=== PATIENT | female | born 1960 | race Caucasian/White ===

== ENCOUNTER → 2017-01-11 | Outpatient (CLI) | payer OTHER ==
[~2017-01-11] MED LIST: ACET-1256 PO; ALBU1AER9 INH
--- NOTE | 2017-01-11 14:55 | MAMMOGRAPHY REPORT ---
BILATERAL DIGITAL SCREENING MAMMOGRAM TOMOSYNTHESIS WITH CAD: 01/11/2017 CLINICAL HISTORY: Routine screening examination. TECHNIQUE: Breast tomosynthesis in addition to standard 2D mammography was performed. Current study was also evaluated with a Computer Aided Detection (CAD) system. COMPARISON: Comparison is made to exams dated: 01/31/2016 mammogram, 01/31/2016 stereotactic biopsy, 12/25 mammogram, 01/08/2016 mammogram, 01/04/2015 mammogram, and 01/03/2014 mammogram - [facility]. BREAST COMPOSITION: There are scattered areas of fibroglandular density in both breasts. FINDINGS: The parenchymal pattern is similar to prior exams. There is a stable metallic biopsy bindu er in the right breast. No developing mass, architectural distortion or cluster of suspicious microc alcifications is seen in either breast. IMPRESSION: ACR BI-RADS CATEGORY 2: BENIGN There is no mammographic evidence of malignancy. A 1 year screening mammogram is recommended. The pa tient will receive written notification of the results. Approximately 10% of breast cancers are not detected with mammography. A negative mammographic report should not delay biopsy if a clinically suggestive mass is present. Sarah Lubin M.D. ay/:01/11/2017 08:20:44 Cylinder Loader: Ally GREENWOOD(R)(M), [facility] letter sent: Normal 1/2 BI-RADS Code: ACR BI-RADS Category 2: Benign
== END | disposition home or self-care (01) ==
LOC: C.MAMM 07:31
PROVIDERS: ATTEND Family Medicine
DX: Z12.31 Encounter for screening mammogram for malignant neoplasm of breast (principal)

== ENCOUNTER 2023-01-06 21:51 | Inpatient (IN) ==
[2023-01-06] MEDS ORDERED: SODIUM CHLORIDE 0.9% 1000ML 2,000 ML IV ONE (22:12)
[2023-01-06] MEDS ORDERED: PIPERACILLIN/TAZOBACTAM 4.5 GM/120 ML BAG IV ONE (22:16)
[2023-01-06] MEDS ORDERED: ACETAMINOPHEN 1,000 MG/100 ML VIAL IV STA (22:17)
--- NOTE | 2023-01-06 22:19 | Emergency Department Note ---
Impression & Plan UTI (urinary tract infection) ADMIT ED Provider Note HPI: The patient is a 62-year-old female who presents emergency department chief complaint of fever and generalized weakness. Patient states her symptoms have been ongoing since Wednesday. She states that she had multiple episodes of watery diarrhea each day. Patient states that she contacted her PCPs office today and was in the process of arranging to have an outpatient urinalysis performed as she was having some dysuria today, however she began to feel worse after work and therefore came to the ED today to be assessed. On arrival the patient is noted to be hypotensive at 84/53, pulse rate of 74, respirations of 20, patient is saturating well on room air without increased work of breathing, she is noted to be febrile at 38.6. Patient denies any headache, denies any abdominal pain, denies any recent vomiting. Patient is alert and oriented on arrival, does appear somewhat listless. ROS: - Per HPI Differential Diagnosis: Sepsis, urinary tract infection, viral upper respiratory infection with cough, viral gastroenteritis, acute colitis, amongst other potential pathologies. *Outpatient medications and allergy history reviewed. *Pertinent external medical records reviewed. PE: General: Alert, listless appearing HEENT: Normocephalic, trachea midline Eyes: Extraocular eye movement is intact, no scleral erythema Pulmonary: Clear to auscultation bilaterally, no wheezing Cardio: Regular rate and rhythm GI: Abdomen is soft to palpation : No suprapubic tenderness MSK: No evidence of trauma or malformation of the extremities, no edema Skin: No evidence of rash Neuro: Alert, no focal deficits Psychiatric: Cooperative awake overnight monitor: (As interpreted by myself): - An order was placed for continuous cardiac monitoring - Patient was noted to be in sinus rhythm with a rate of 75 EKG: (As interpreted by myself): Rate: 74 Rhythm: Normal sinus rhythm Intervals: Within normal limits ST changes: No ST elevation Time: 2213 Interventions provided in ED: -IV fluid bolus greater than 30 cc/kg, IV Zosyn, IV Medical Decision Making: Patient presented to the emergency department with hypotension, she was noted to have a fever at 38.6, appears somewhat listless on arrival. Patient stated she had some diarrhea recently and developed dysuria just today. Shortly after the patient arrived IV was established and lab work obtained, patient was placed on ekg monitor tech. Patient was ordered IV fluid resuscitation as well as prophylactic Zosyn given her hypotension and fever on arrival. Lab work shows leukocytosis at 13.79, blood cultures were ordered, hemoglobin is stable, platelet count is within normal limits, CMP does not show any critical findings, glucose elevated at 181 without any evidence of DKA as serum bicarbonate level is 24. Procalcitonin is low at less than 0.05, urinalysis does show evidence of infection, 3+ blood, nitrate positive, leukocyte esterase 2+, significant pyuria. Patient denies any abdominal pain on my exam, she does not have any flank pain, therefore CT imaging of the abdomen pelvis was not obtained. Stool PCR was ordered however patient was unable to give a sample here in the ED. Following the above interventions patient states she is feeling much improved, her viral panel testing is negative. Blood pressure has improved to 109 systolic on my reassessment, heart rate remains well controlled. Patient's fever is down trended. Given the patient's presenting vital signs and appearance in addition to fever with leukocytosis and hypotension I do feel she should be admitted for continuation of IV antibiotics and overnight observation. Patient is in agreement. Case was discussed with the on-call hospitalist, Dr. Siegel, and the patient was placed for admission in stable condition. Consultants: Dr. Siegel, hospitalist Disposition discussion held by myself with: Patient * CRITICAL CARE TIME: ( 44 ) minutes -Stabilization of hypotension in the 80s systolic in the setting of urinary tract infection requiring aggressive IV fluid resuscitation at greater than 30 cc/kg for improvement of hypotension, interpretation of diagnostic studies, time spent at the bedside, discussion with other physicians and arrangement of admission Diagnosis: 1. Sepsis secondary to urinary tract infection, acute 2. Hypotension, acute 3. Fever 4. Diarrhea, acute Disposition: Admission Rudi Wilson DO Emergency Medicine Past Med/Surg History Social History Smoking Status: Never smoker Preferred Language: Maltese Feels Safe at Home: Yes Allergies Allergies Allergy/AdvReac Type Severity Reaction Status Date / Time Bactrim Allergy HIVES Unverified 01/10/11 05:10 sulfamethoxazole [Bactrim] Allergy HIVES Unverified 01/06/23 23:37 trimethoprim [Bactrim] Allergy HIVES Unverified 01/06/23 23:37 latex AdvReac Mild Redness of Verified 01/06/23 23:37 Skin Home Meds Home Medications Medication Instructions Recorded Confirmed calcium-magnesium 750 mg-465 mg 1 tab PO DAILY 01/07/23 01/07/23 tablet cholecalciferol (vitamin D3) 25 25 mcg PO DAILY 01/07/23 01/07/23 mcg (1,000 unit) capsule (Vitamin D3) cyanocobalamin (vitamin B-12) 1,000 mcg PO DAILY 01/07/23 01/07/23 1,000 mcg tablet (Vitamin B-12) Results & Data (ED) Vital Signs Vital Signs - 24 hr 01/06/23 21:58 01/06/23 22:27 01/06/23 22:23 Temperature 38.6 C H Temperature Source Temporal Artery Scan Pulse Rate 74 71 Pulse Rate [Left Apical] 87 Pulse Rate from SpO2 Sensor Respiratory Rate 20 18 Blood Pressure 84/53 L Blood Pressure [Right Arm] 98/58 L Blood Pressure Mean 63 Blood Pressure Mean [Right Arm] 71 Pulse Oximetry 94 98 Oxygen Delivery Method Room Air Room Air Sepsis Recent Fever Within 48 Hours No Sepsis New/Unexplained Change in Mental Status No Sepsis Action Taken by Nursing No Action Required 01/06/23 22:30 01/06/23 23:36 01/06/23 22:50 Temperature Temperature Source Pulse Rate 77 83 Pulse Rate [Left Apical] Pulse Rate from SpO2 Sensor 83 Respiratory Rate 18 15 Blood Pressure 124/57 L Blood Pressure [Right Arm] Blood Pressure Mean 79 Blood Pressure Mean [Right Arm] Pulse Oximetry 99 94 97 Oxygen Delivery Method Room Air Room Air Sepsis Recent Fever Within 48 Hours Sepsis New/Unexplained Change in Mental Status Sepsis Action Taken by Nursing 01/06/23 23:00 01/06/23 23:10 01/06/23 23:20 Temperature Temperature Source Pulse Rate 76 76 73 Pulse Rate [Left Apical] Pulse Rate from SpO2 Sensor 75 76 72 Respiratory Rate 18 16 17 Blood Pressure 112/53 L Blood Pressure [Right Arm] Blood Pressure Mean 72 Blood Pressure Mean [Right Arm] Pulse Oximetry 94 95 95 Oxygen Delivery Method Sepsis Recent Fever Within 48 Hours Sepsis New/Unexplained Change in Mental Status Sepsis Action Taken by Nursing 01/06/23 23:30 01/06/23 23:40 01/07/23 01:09 Temperature 36.9 C Temperature Source Oral Pulse Rate 71 71 Pulse Rate [Left Apical] Pulse Rate from SpO2 Sensor 69 71 Respiratory Rate 19 19 Blood Pressure 107/53 L Blood Pressure [Right Arm] Blood Pressure Mean 71 Blood Pressure Mean [Right Arm] Pulse Oximetry 92 92 Oxygen Delivery Method Sepsis Recent Fever Within 48 Hours Sepsis New/Unexplained Change in Mental Status Sepsis Action Taken by Nursing Laboratory Data 01/06/23 22:20 01/06/23 22:20 Lab Results 01/06/23 01/06/23 01/06/23 Range/Units 22:20 22:20 22:20 WBC 13.79 H (4.8-10.8) K/ul RBC 4.22 (4.20-5.40) M/uL Hgb 13.4 (12.0-16.0) g/dl Hct 37.7 (37.0-47.0) % MCV 89.3 (80.0-100.0) fL MCH 31.8 (25.0-34.0) pg MCHC 35.5 (32.0-36.0) g/dL RDW Std Deviation 41.6 (36.4-46.3) fL RDW Coeff of Jayla 12.7 (11.5-14.5) % Plt Count 349 (130-400) K/uL MPV 10.1 (9.4-12.4) fL Immature Gran % (Auto) 0.4 % Neut % (Auto) 77.2 % Lymph % (Auto) 14.3 % [place] % (Auto) 7.5 % Eos % (Auto) 0.1 % Baso % (Auto) 0.5 % Neut # (Auto) 10.63 H (1.40-6.50) K/uL Lymph # (Auto) 1.97 (1.2-3.4) K/uL [place] # (Auto) 1.04 H (0.11-0.59) K/uL Eos # (Auto) 0.02 (0-0.50) K/uL Baso # (Auto) 0.07 (0-0.2) K/uL Immature Gran # (Auto) 0.06 (0.01-0.20) K/uL PT 10.4 (9.0-12.0) Seconds INR 0.9 (0.9-1.1) APTT 22.3 (21.0-31.0) Seconds PTT Ratio 0.8 Sodium (136-145) mmol/L Potassium (3.5-5.1) mmol/L Chloride (98-107) mmol/L Carbon Dioxide (21-32) mmol/L Anion Gap (3-11) BUN (6-23) mg/dl Creatinine (0.6-1.2) mg/dl Est Cr Clr Drug Dosing Est GFR ( Amer) ml/min Est GFR (Non-Af Amer) ml/min BUN/Creatinine Ratio (10-20) Glucose (70-99(Fasting)) mg/dl Lactate 1.3 (0.4-2.0) mmol/L Calcium (8.6-10.3) mg/dl Magnesium (1.7-2.4) mg/dl Total Bilirubin (0.2-1.0) mg/dl AST (13-39) U/L ALT (7-52) U/L Alkaline Phosphatase (34-104) U/L Troponin I High Sens (0-14) pg/ml Total Protein (6.0-8.3) gm/dl Albumin (3.4-5.0) gm/dl Globulin (2.5-4.0) gm/dl Albumin/Globulin Ratio (0.9-2) Procalcitonin (0-0.5) ng/ml Urine Color Urine Appearance (Clear) Urine pH (4.5-7.5) Ur Specific [place] (1.000-1.030) Urine Protein (Negative) Urine Glucose (UA) (Negative) Urine Ketones (Negative) Urine Blood (Negative) Urine Nitrite (Negative) Urine Bilirubin (Negative) Urine Urobilinogen (Negative) Ur Leukocyte Esterase (Negative) Urine WBC (Auto) (0-5) /hpf Urine RBC (Auto) (0-4) /hpf U Hyaline Cast (Auto) (0-5) /lpf U Epithel Cells (Auto) (0-5) /lpf Urine Bacteria (Auto) (Negative) Adenovirus (PCR) (NotDetected) B. pertussis DNA (PCR) (NotDetected) B.parapertussis DNA PCR (NotDetected) C. pneumoniae DNA (PCR) (NotDetected) Coronavirus OC43 (PCR) (NotDetected) Coronavirus HKU1 (PCR) (NotDetected) Coronavirus 229E (PCR) (NotDetected) SARS-CoV-2 (PCR) (NotDetected) Coronavirus NL63 (PCR) (NotDetected) Human Metapneumovir PCR (NotDetected) Influenza Type A (PCR) (NotDetected) Influenza Type B (PCR) (NotDetected) M. pneumoniae (PCR) (NotDetected) Parainfluenza 1 (PCR) (NotDetected) Parainfluenza 2 (PCR) (NotDetected) Parainfluenza 3 (PCR) (NotDetected) Parainfluenza 4 (PCR) (NotDetected) RSV (PCR) (NotDetected) Entero/Rhino (PCR) (NotDetected) 01/06/23 01/06/23 01/06/23 Range/Units 22:20 22:20 22:42 WBC (4.8-10.8) K/ul RBC (4.20-5.40) M/uL Hgb (12.0-16.0) g/dl Hct (37.0-47.0) % MCV (80.0-100.0) fL MCH (25.0-34.0) pg MCHC (32.0-36.0) g/dL RDW Std Deviation (36.4-46.3) fL RDW Coeff of Jayla (11.5-14.5) % Plt Count (130-400) K/uL MPV (9.4-12.4) fL Immature Gran % (Auto) % Neut % (Auto) % Lymph % (Auto) % [place] % (Auto) % Eos % (Auto) % Baso % (Auto) % Neut # (Auto) (1.40-6.50) K/uL Lymph # (Auto) (1.2-3.4) K/uL [place] # (Auto) (0.11-0.59) K/uL Eos # (Auto) (0-0.50) K/uL Baso # (Auto) (0-0.2) K/uL Immature Gran # (Auto) (0.01-0.20) K/uL PT (9.0-12.0) Seconds INR (0.9-1.1) APTT (21.0-31.0) Seconds PTT Ratio Sodium 136 (136-145) mmol/L Potassium 3.5 (3.5-5.1) mmol/L Chloride 100 (98-107) mmol/L Carbon Dioxide 24 (21-32) mmol/L Anion Gap 12 H (3-11) BUN 9 (6-23) mg/dl Creatinine 0.77 (0.6-1.2) mg/dl Est Cr Clr Drug Dosing Not Reportable Est GFR ( Amer) 95.9 ml/min Est GFR (Non-Af Amer) 82.8 ml/min BUN/Creatinine Ratio 11.7 (10-20) Glucose 181 H (70-99(Fasting)) mg/dl Lactate (0.4-2.0) mmol/L Calcium 9.5 (8.6-10.3) mg/dl Magnesium 2.0 (1.7-2.4) mg/dl Total Bilirubin 0.7 (0.2-1.0) mg/dl AST 20 (13-39) U/L ALT 13 (7-52) U/L Alkaline Phosphatase 99 (34-104) U/L Troponin I High Sens 5.4 (0-14) pg/ml Total Protein 7.1 (6.0-8.3) gm/dl Albumin 4.3 (3.4-5.0) gm/dl Globulin 2.8 (2.5-4.0) gm/dl Albumin/Globulin Ratio 1.5 (0.9-2) Procalcitonin < 0.05 (0-0.5) ng/ml Urine Color Urine Appearance (Clear) Urine pH (4.5-7.5) Ur Specific [place] (1.000-1.030) Urine Protein (Negative) Urine Glucose (UA) (Negative) Urine Ketones (Negative) Urine Blood (Negative) Urine Nitrite (Negative) Urine Bilirubin (Negative) Urine Urobilinogen (Negative) Ur Leukocyte Esterase (Negative) Urine WBC (Auto) (0-5) /hpf Urine RBC (Auto) (0-4) /hpf U Hyaline Cast (Auto) (0-5) /lpf U Epithel Cells (Auto) (0-5) /lpf Urine Bacteria (Auto) (Negative) Adenovirus (PCR) Not Detected (NotDetected) B. pertussis DNA (PCR) Not Detected (NotDetected) B.parapertussis DNA PCR Not Detected (NotDetected) C. pneumoniae DNA (PCR) Not Detected (NotDetected) Coronavirus OC43 (PCR) Not Detected (NotDetected) Coronavirus HKU1 (PCR) Not Detected (NotDetected) Coronavirus 229E (PCR) Not Detected (NotDetected) SARS-CoV-2 (PCR) Not Detected (NotDetected) Coronavirus NL63 (PCR) Not Detected (NotDetected) Human Metapneumovir PCR Not Detected (NotDetected) Influenza Type A (PCR) Not Detected (NotDetected) Influenza Type B (PCR) Not Detected (NotDetected) M. pneumoniae (PCR) Not Detected (NotDetected) Parainfluenza 1 (PCR) Not Detected (NotDetected) Parainfluenza 2 (PCR) Not Detected (NotDetected) Parainfluenza 3 (PCR) Not Detected (NotDetected) Parainfluenza 4 (PCR) Not Detected (NotDetected) RSV (PCR) Not Detected (NotDetected) Entero/Rhino (PCR) Not Detected (NotDetected) 01/07/23 Range/Units 00:04 WBC (4.8-10.8) K/ul RBC (4.20-5.40) M/uL Hgb (12.0-16.0) g/dl Hct (37.0-47.0) % MCV (80.0-100.0) fL MCH (25.0-34.0) pg MCHC (32.0-36.0) g/dL RDW Std Deviation (36.4-46.3) fL RDW Coeff of Jayla (11.5-14.5) % Plt Count (130-400) K/uL MPV (9.4-12.4) fL Immature Gran % (Auto) % Neut % (Auto) % Lymph % (Auto) % [place] % (Auto) % Eos % (Auto) % Baso % (Auto) % Neut # (Auto) (1.40-6.50) K/uL Lymph # (Auto) (1.2-3.4) K/uL [place] # (Auto) (0.11-0.59) K/uL Eos # (Auto) (0-0.50) K/uL Baso # (Auto) (0-0.2) K/uL Immature Gran # (Auto) (0.01-0.20) K/uL PT (9.0-12.0) Seconds INR (0.9-1.1) APTT (21.0-31.0) Seconds PTT Ratio Sodium (136-145) mmol/L Potassium (3.5-5.1) mmol/L Chloride (98-107) mmol/L Carbon Dioxide (21-32) mmol/L Anion Gap (3-11) BUN (6-23) mg/dl Creatinine (0.6-1.2) mg/dl Est Cr Clr Drug Dosing Est GFR ( Amer) ml/min Est GFR (Non-Af Amer) ml/min BUN/Creatinine Ratio (10-20) Glucose (70-99(Fasting)) mg/dl Lactate (0.4-2.0) mmol/L Calcium (8.6-10.3) mg/dl Magnesium (1.7-2.4) mg/dl Total Bilirubin (0.2-1.0) mg/dl AST (13-39) U/L ALT (7-52) U/L Alkaline Phosphatase (34-104) U/L Troponin I High Sens (0-14) pg/ml Total Protein (6.0-8.3) gm/dl Albumin (3.4-5.0) gm/dl Globulin (2.5-4.0) gm/dl Albumin/Globulin Ratio (0.9-2) Procalcitonin (0-0.5) ng/ml Urine Color Dark Yellow Urine Appearance Clear (Clear) Urine pH 7.5 (4.5-7.5) Ur Specific [place] 1.017 (1.000-1.030) Urine Protein Negative (Negative) Urine Glucose (UA) Negative (Negative) Urine Ketones Trace H (Negative) Urine Blood 3+ H (Negative) Urine Nitrite Positive A (Negative) Urine Bilirubin Negative (Negative) Urine Urobilinogen Negative (Negative) Ur Leukocyte Esterase 2+ H (Negative) Urine WBC (Auto) >30 H (0-5) /hpf Urine RBC (Auto) >30 H (0-4) /hpf U Hyaline Cast (Auto) 1-5 (0-5) /lpf U Epithel Cells (Auto) 0-5 (0-5) /lpf Urine Bacteria (Auto) Negative (Negative) Adenovirus (PCR) (NotDetected) B. pertussis DNA (PCR) (NotDetected) B.parapertussis DNA PCR (NotDetected) C. pneumoniae DNA (PCR) (NotDetected) Coronavirus OC43 (PCR) (NotDetected) Coronavirus HKU1 (PCR) (NotDetected) Coronavirus 229E (PCR) (NotDetected) SARS-CoV-2 (PCR) (NotDetected) Coronavirus NL63 (PCR) (NotDetected) Human Metapneumovir PCR (NotDetected) Influenza Type A (PCR) (NotDetected) Influenza Type B (PCR) (NotDetected) M. pneumoniae (PCR) (NotDetected) Parainfluenza 1 (PCR) (NotDetected) Parainfluenza 2 (PCR) (NotDetected) Parainfluenza 3 (PCR) (NotDetected) Parainfluenza 4 (PCR) (NotDetected) RSV (PCR) (NotDetected) Entero/Rhino (PCR) (NotDetected) Administered Medications Discontinued Medications Sodium Chloride (Nss 1000ml) 2,000 mls @ 999 mls/hr IV .Q2H1M ONE Stop: 01/07/23 00:12 Last Infusion: 01/06/23 23:33 Dose: 0 mls/hr Documented By: Admin: 01/06/23 22:20 Dose: 999 mls/hr Documented By: MOHSEN Piperacillin Sod/Tazobactam Sod (Zosyn) 4.5 gm in 120 mls @ 240 mls/hr IV NOW ONE Stop: 01/06/23 22:45 Last Infusion: 01/06/23 22:46 Dose: 0 mls/hr Documented By: Admin: 01/06/23 22:22 Dose: 240 mls/hr Documented By: MOHSEN Acetaminophen (Ofirmev) 1,000 mg in 100 mls @ 400 mls/hr IV NOW STA Stop: 01/06/23 22:31 Last Infusion: 01/06/23 22:45 Dose: 0 mls/hr Documented By: Admin: 01/06/23 22:22 Dose: 400 mls/hr Documented By: MOHSEN Sodium Chloride (Nss) 500 mls @ 999 mls/hr IV .Q31M ONE Stop: 01/07/23 01:05 Last Admin: 01/07/23 01:07 Dose: 999 mls/hr Documented By: MOHSEN Discharge Plan Visit Data Chief Complaint: Urinary Symptoms Stated Complaint: UTI,REALLY SICK ED Provider: Rudi Wilson Discharge Problem: UTI (urinary tract infection) Forms Stand Alone Forms: [employer] [facility] CDC Software Prescriptions Prescriptions: No Action cyanocobalamin (vitamin B-12) [Vitamin B-12] 1,000 mcg Tablet 1,000 mcg PO DAILY cholecalciferol (vitamin D3) [Vitamin D3] 25 mcg (1,000 unit) Capsule 25 mcg PO DAILY Calcium And Magnesium 750-465 mg Tablet 1 tab PO DAILY Referrals Referrals: Samir Shen MD [Primary Care Provider] - UTI (urinary tract infection) Qualifiers: Urinary tract infection type: site unspecified
[2023-01-06 22:51] LABS: Basophils # (auto) 0.07 K/uL (0-0.2); Basophils % (auto) 0.5 %; Eosinophils # (auto) 0.02 K/uL (0-0.50); Eosinophils % (auto) 0.1 %; Hematocrit (blood only) 37.7 % (37.0-47.0); Hemoglobin 13.4 g/dl (12.0-16.0); Immature Granulocytes # (auto) 0.06 K/uL (0.01-0.20); Immature Granulocytes % (auto) 0.4 %; Lymphocytes # (auto) 1.97 K/uL (1.2-3.4); Lymphocytes % (auto) 14.3 %; Mean Corpuscular Hemoglobin 31.8 pg (25.0-34.0); Mean Corpuscular Hgb Conc 35.5 g/dL (32.0-36.0); Mean Corpuscular Volume 89.3 fL (80.0-100.0); Mean Platelet Volume 10.1 fL (9.4-12.4); Monocytes # (auto) 1.04 K/uL (0.11-0.59); Monocytes % (auto) 7.5 %; Neutrophils # (auto) 10.63 K/uL (1.40-6.50); Neutrophils % (auto) 77.2 %; Platelet Count 349 K/uL (130-400); RDW Coefficient of Variation 12.7 % (11.5-14.5); RDW Standard Deviation 41.6 fL (36.4-46.3); Red Blood Count 4.22 M/uL (4.20-5.40); White Blood Count 13.79 K/ul (4.8-10.8)
[2023-01-06 23:07] LABS: Alanine Aminotransferase 13 U/L (7-52); Albumin Globulin Ratio 1.5 (0.9-2); Albumin Level 4.3 gm/dl (3.4-5.0); Alkaline Phosphatase 99 U/L (34-104); Anion Gap 12 (3-11); Aspartate Aminotransferase 20 U/L (13-39); BUN Creatinine Ratio 11.7 (10-20); Bilirubin,Total 0.7 mg/dl (0.2-1.0); Blood Urea Nitrogen 9 mg/dl (6-23); Calcium 9.5 mg/dl (8.6-10.3); Carbon Dioxide 24 mmol/L (21-32); Chloride 100 mmol/L (98-107); Est GFR (African American) 95.9 ml/min; Est GFR (Non-African American) 82.8 ml/min; Globulin 2.8 gm/dl (2.5-4.0); Glucose 181 mg/dl (70-99(Fasting)); Potassium 3.5 mmol/L (3.5-5.1); Sodium 136 mmol/L (136-145); Total Protein 7.1 gm/dl (6.0-8.3)
[2023-01-06 23:14] LABS: Troponin I High Sensitivity 5.4 pg/ml (0-14)
[2023-01-06 23:32] LABS: INR 0.9 (0.9-1.1); Partial Thromboplastin Ratio 0.8; Partial Thromboplastin Time 22.3 Seconds (21.0-31.0); Prothrombin Time 10.4 Seconds (9.0-12.0)
[2023-01-06 23:45] LABS: Adenovirus PCR Not Detected (NotDetected); Bordetella parapertussis PCR Not Detected (NotDetected); Bordetella pertussis PCR Not Detected (NotDetected); Chlamydia pneumoniae PCR Not Detected (NotDetected); Coronavirus 229E PCR Not Detected (NotDetected); Coronavirus CoV-2 (COVID19)PCR Not Detected (NotDetected); Coronavirus HKU1 PCR Not Detected (NotDetected); Coronavirus NL63 PCR Not Detected (NotDetected); Coronavirus OC43PCR Not Detected (NotDetected); Human Metapneumovirus PCR Not Detected (NotDetected); Influenza A PCR Not Detected (NotDetected); Influenza B PCR Not Detected (NotDetected); Mycoplasma pneumoniae PCR Not Detected (NotDetected); Parainfluenza Virus 1 PCR Not Detected (NotDetected); Parainfluenza Virus 2 PCR Not Detected (NotDetected); Parainfluenza Virus 3 PCR Not Detected (NotDetected); Parainfluenza Virus 4 PCR Not Detected (NotDetected); Respiratory Syncytial VirusPCR Not Detected (NotDetected); Rhinovirus/Enterovirus PCR Not Detected (NotDetected)
[2023-01-07 00:16] LABS: Appearance Urine Clear (Clear); Bacteria Urine Automated Negative (Negative); Bilirubin Urine Negative (Negative); Blood Urine 3+ (Negative); Color Urine Dark Yellow; Epithelial Cell Urine Auto 0-5 /lpf (0-5); Glucose Urine UA Negative (Negative); Ketones Urine Trace (Negative); Leukocyte Esterase Urine 2+ (Negative); Nitrite Urine Positive (Negative); Protein Urine Negative (Negative); RBC Urine Automated >30 /hpf (0-4); Specific Gravity Urine 1.017 (1.000-1.030); Urobilinogen Urine Negative (Negative); WBC Urine Automated >30 /hpf (0-5); pH Urine 7.5 (4.5-7.5)
[2023-01-07] MEDS ORDERED: SODIUM CHLORIDE 0.9% 500 ML IV ONE (00:35)
[2023-01-07] MEDS ORDERED: NITROGLYCERIN SL 0.4 MG/TAB TAB SL PRN (04:38)
[2023-01-07] MEDS ORDERED: ONDANSETRON INJ 2 MG/ML 2 ML VIAL IV PRN (04:38)
[2023-01-07] MEDS ORDERED: ACETAMINOPHEN 325 MG TAB PO PRN (04:38)
[2023-01-07] MEDS: PIPERACILLIN/TAZOBACTAM 4.5 GM in DEXTROSE 5% 100 ML IV SCH ×3 (05:15→21:04)
[2023-01-07] MEDS: SODIUM CHLORIDE 0.9% 1000ML 1,000 ML IV SCH ×2 (05:15→13:21)
--- NOTE | 2023-01-07 05:57 | History and Physical Report ---
DATE OF ADMISSION: 01/07/2023. CHIEF COMPLAINT: Early sepsis, UTI. HISTORY OF PRESENT ILLNESS: This is a 62-year-old female with past medical history significant for chronic rhinitis, history of irritable bowel syndrome, cervicalgia, who presents with urinary symptoms. The patient states she woke up Wednesday morning on 01/06/2023 with burning micturition and also some back pain. She went to work but symptoms got worse. She drove to [facility] to give urine sample in the afternoon, she came back to work. But her symptoms progressively got worse.. She was feeling frequent urination with lot of pain. The pain was severe and was radiating into stomach into the chest. Was having chills and nausea and whole body aches.. She came back home around 4:30pm .Drank a lot of water. She has to cover herself with blankets as she was felling chilly and shivering and teeth were hurting. Was feeling very dizzy and she had episode of blood in the urine when she decided to call her , who was at work and she was brought to the hospital. When she came in, her, systolic blood pressure was 80s and with the fluid, the blood pressure improved. She had a temperature spike of 38.6, white count of 13.7, lactic acid is okay at 1.3. Urinalysis was positive and she was given Zosyn. Currently, her urine is, yellowish color and there was no blood in it and there was no burning. The pain is much improved. Other symptoms are much improved. She is feeling better. Right now, she wants to eat something, resting comfortably. at bedside. Denies any shortness of breath. No cough. She had a very bad headache when this happened, but it is much improved. She had blurred vision that is improving. No earache, no runny nose, no sore throat, no abdominal pain. Last Wednesday, she had episodes of severe diarrhea couple of episodes. It happened when she was at work and she thinks she had not cleaned properly that might had triggered her recurrent UTI. But after that her bowel movements are normnal. ALLERGIES: BACTRIM, LATEX. PAST MEDICAL HISTORY: As mentioned above. PAST SURGICAL HISTORY: Colonoscopy, dilatation and curettage, biopsy of the breast, treatment of incomplete . MEDICATIONS: The patient seems to be on vitamin D 25 mcg p.o. daily, vitamin B12 1000 mcg p.o. daily, calcium-magnesium tablet daily. FAMILY HISTORY: Significant for mother has liver disease PBC. Sister, diabetes. Paternal grandfather, heart disorder. SOCIAL HISTORY: , no smoking. Alcohol, drinks wine. No drug use. REVIEW OF SYSTEMS: As per HPI. Rest of review of systems is negative. PHYSICAL EXAMINATION: GENERAL: The patient is of moderate build, not in acute distress. VITAL SIGNS: Temperature 36.9, pulse 65, respiratory rate 17, blood pressure 92/54, oxygen 92% on room air. HEENT: Pupils equal, round and reactive to light. Oral mucosa dry. NECK: No JVD or neck masses. CARDIOVASCULAR: S1 and S2 heard. Regular rate and rhythm. No murmur, no gallop. RESPIRATORY SYSTEM: Normal AP diameter. No accessory muscle use. No wheezing or crackles. ABDOMEN: Soft, bowel sounds present. Mild lower abdominal discomfort. No CVA tenderness. CENTRAL NERVOUS SYSTEM: Cranial nerves II through XII are grossly intact, nonfocal. EXTREMITIES: No edema, no erythema. LABORATORY DATA: WBC 13.7, hemoglobin 13.4, hematocrit 37.7, platelets 349. PT 10.4, INR 0.9, APTT 22.3. Sodium 136, potassium 3.5, chloride 100, bicarbonate 24, BUN 9, creatinine 0.7, serum glucose 181. Lactate 1.3, calcium 9.5, magnesium 2, total bilirubin 0.7, AST 20, ALT 13, alkaline phosphatase 99. Troponin I high sensitivity 5.4. Procalcitonin less than 0.05. Urinalysis positive for nitrite, +2 leukocyte esterase. Respiratory BioFire negative. IMAGING DATA: Chest x-ray, no acute findings. EKG, normal sinus rhythm at a rate of 74. Bilateral enlargement, no significant change was found. ASSESSMENT AND PLAN: This 62-year-old female presents with burning micturition, chills, fever, hypotension, probably early sepsis. 1. Early sepsis. The patient has urinary tract symptoms, was hypotensive , temperature spike and leukocytosis. Urinalysis positive. Symptoms much improved with Zosyn and fluids. We will continue with Zosyn for now until cultures are available. Continue IV fluids, normal saline 100 mL per hour. Monitor in the [employer]. 2. Deep venous thrombosis prophylaxis: Lovenox. DISPOSITION: Closely monitor in the med tele. Expect to discharge home and follow with family doctor. Job ID: [id number] ARIES
[2023-01-07 07:17] LABS: Basophils # (auto) 0.05 K/uL (0-0.2); Basophils % (auto) 0.4 %; Eosinophils # (auto) 0.02 K/uL (0-0.50); Eosinophils % (auto) 0.2 %; Hematocrit (blood only) 33.6 % (37.0-47.0); Hemoglobin 11.5 g/dl (12.0-16.0); Immature Granulocytes # (auto) 0.03 K/uL (0.01-0.20); Immature Granulocytes % (auto) 0.3 %; Lymphocytes # (auto) 2.28 K/uL (1.2-3.4); Lymphocytes % (auto) 19.4 %; Mean Corpuscular Hemoglobin 31.3 pg (25.0-34.0); Mean Corpuscular Hgb Conc 34.2 g/dL (32.0-36.0); Mean Corpuscular Volume 91.6 fL (80.0-100.0); Mean Platelet Volume 10.3 fL (9.4-12.4); Monocytes # (auto) 0.71 K/uL (0.11-0.59); Monocytes % (auto) 6.1 %; Neutrophils # (auto) 8.64 K/uL (1.40-6.50); Neutrophils % (auto) 73.6 %; Platelet Count 284 K/uL (130-400); RDW Coefficient of Variation 12.9 % (11.5-14.5); Red Blood Count 3.67 M/uL (4.20-5.40); White Blood Count 11.73 K/ul (4.8-10.8)
[2023-01-07 07:25] LABS: BUN Creatinine Ratio 10.8 (10-20); Calcium 8.3 mg/dl (8.6-10.3); Creatinine Clr Calc Pharmacy 82.9 ml/min; Est GFR (African American) 110.3 ml/min; Est GFR (Non-African American) 95.2 ml/min
[2023-01-07] MEDS: ENOXAPARIN INJ 40 MG/0.4 ML SYR SQ SCH (07:32)
--- NOTE | 2023-01-07 07:35 | XRay Report ---
XR chest 1V portable CLINICAL HISTORY: Sepsis. COMPARISON STUDY: Chest radiograph October 27, 2014. FINDINGS: Lung volumes are normal. Lungs are clear. There is no pneumothorax or pleural effusion. Car diac size is normal. Mediastinal contours are normal. There is no evidence for pulmonary edema. IMPRESSION: No acute cardiopulmonary findings. ACT 112: Negative or not required by law. Electronically signed by: Yobani Ortega M.D. 01/07/2023 7:34 AM
[2023-01-07] MEDS: CHOLECALCIFEROL 1,000 UNITS 25 MCG TAB PO SCH (08:16)
[2023-01-07] MEDS: CYANOCOBALAMIN (B-12) 500 MCG TABLET PO SCH (08:16)
[2023-01-07] MEDS ORDERED: NON-FORMULARY MEDICATION (Calcium-Magnesium 750-465 mg Tablet) PO SCH (09:00)
[2023-01-07] MEDS: ADVANCED PROBIOTIC 1250 MG CAPSULE PO SCH (10:10)
--- NOTE | 2023-01-07 12:24 | Hospitalist Progress Note ---
Date of Service January 07, 2023 Assessment & Plan (1) UTI (urinary tract infection): Plan: 1. Early sepsis secondary to UTI r/o Bacteremia - Blood culture pending Urine culture pending - fever improving - continue empiric IV Zosyn 2. Deep venous thrombosis prophylaxis: Lovenox. plan of care discussed with patient in detail and at length all questions answered she is understanding, agreeable, comfortable with the plan of care Admission and Anticipated Discharge Date Admission Date: January 07, 2023 Subjective ff up for UTI, etc seen resting in bed, comfortable states she feels better today than yesterday dysuria, lower abdominal pressure improving no fever/chills, nausea/vomiting no chest pain, dyspnea, palpitations, dizziness no other symptoms Review of Systems Review of Systems: all noted and negative except for above Physical Exam Physical Exam: General- oriented x 3, not in distress, speaks in sentences with no effort or accessory muscle use Eyes- anicteric Neck- no JVD Lungs- clear breath sounds bilaterally, no rales/wheezes Heart- normal rate, regular rhythm; no murmurs Abdomen- normal bowel sounds, nondistended, soft, nontender Extremities- no pretibial edema, no calf tenderness Neuro- alert, oriented x 3; no gross focal neurologic deficits Skin- warm & dry Results & Data Results & Data Vital Signs (Past 12 Hours) Vital Signs Temp Pulse Pulse Resp BP BP Pulse Ox 01/07/23 12:10 36.9 C 59 L 18 126/70 01/07/23 08:00 56 L 01/07/23 07:26 36.7 C 56 L 18 120/72 98 01/07/23 04:40 37.1 C 63 18 133/68 96 01/07/23 05:06 56 L 01/07/23 04:50 01/07/23 04:00 57 L 16 01/07/23 03:57 68 16 01/07/23 02:30 68 17 90 01/07/23 02:30 103/65 01/07/23 02:27 65 01/07/23 02:00 67 17 92 01/07/23 02:00 92/54 L 01/07/23 01:30 63 17 93 01/07/23 01:30 109/63 01/07/23 01:00 73 21 94 01/07/23 01:00 115/66 01/07/23 00:30 68 18 92 01/07/23 00:30 109/66 01/07/23 01:09 36.9 C O2 Del Method 01/07/23 12:10 Room Air 01/07/23 08:00 01/07/23 07:26 Room Air 01/07/23 04:40 Room Air 01/07/23 05:06 01/07/23 04:50 Room Air 01/07/23 04:00 01/07/23 03:57 01/07/23 02:30 01/07/23 02:30 01/07/23 02:27 01/07/23 02:00 01/07/23 02:00 01/07/23 01:30 01/07/23 01:30 01/07/23 01:00 01/07/23 01:00 01/07/23 00:30 01/07/23 00:30 01/07/23 01:09 all noted and reviewed including below (1) UTI (urinary tract infection) Urinary tract infection type: site unspecified
--- NOTE | 2023-01-07 19:23 | Electrocardiogram Report ---
Test Reason : Blood Pressure : / mmHG Vent. Rate : 074 BPM Atrial Rate : 074 BPM P-R Int : 196 ms QRS Dur : 084 ms QT Int : 406 ms P-R-T Axes : 064 032 053 degrees QTc Int : 450 ms Normal sinus rhythm Biatrial enlargement Abnormal ECG When compared with ECG of 27-OCT-2014 11:22, No significant change was found Confirmed by Edward Durand ([id number]) on 01/07/2023 7:22:55 PM Referred By: REFERRED SELF Confirmed By:Bulmaro Durand
[2023-01-08] MEDS: PIPERACILLIN/TAZOBACTAM 4.5 GM in DEXTROSE 5% 100 ML IV SCH (04:32)
[2023-01-08 08:57] LABS: BUN Creatinine Ratio 9.1 (10-20); Calcium 8.7 mg/dl (8.6-10.3); Creatinine Clr Calc Pharmacy 82.1 ml/min; Est GFR (African American) 109.7 ml/min; Est GFR (Non-African American) 94.7 ml/min; Potassium 3.8 mmol/L (3.5-5.1)
[2023-01-08 09:02] LABS: Basophils # (auto) 0.06 K/uL (0-0.2); Eosinophils # (auto) 0.14 K/uL (0-0.50); Eosinophils % (auto) 2.4 %; Hematocrit (blood only) 34.4 % (37.0-47.0); Hemoglobin 11.7 g/dl (12.0-16.0); Immature Granulocytes # (auto) 0.01 K/uL (0.01-0.20); Immature Granulocytes % (auto) 0.2 %; Lymphocytes # (auto) 1.97 K/uL (1.2-3.4); Lymphocytes % (auto) 33.4 %; Mean Corpuscular Hemoglobin 31.2 pg (25.0-34.0); Mean Corpuscular Volume 91.7 fL (80.0-100.0); Mean Platelet Volume 10.6 fL (9.4-12.4); Monocytes # (auto) 0.64 K/uL (0.11-0.59); Monocytes % (auto) 10.9 %; Neutrophils # (auto) 3.07 K/uL (1.40-6.50); Neutrophils % (auto) 52.1 %; Platelet Count 291 K/uL (130-400); RDW Coefficient of Variation 13.2 % (11.5-14.5); RDW Standard Deviation 44.6 fL (36.4-46.3); Red Blood Count 3.75 M/uL (4.20-5.40); White Blood Count 5.89 K/ul (4.8-10.8)
[2023-01-08] MEDS: CHOLECALCIFEROL 1,000 UNITS 25 MCG TAB PO SCH (09:05)
[2023-01-08] MEDS: ENOXAPARIN INJ 40 MG/0.4 ML SYR SQ SCH (09:05)
[2023-01-08] MEDS: ADVANCED PROBIOTIC 1250 MG CAPSULE PO SCH (09:05)
[2023-01-08] MEDS: CYANOCOBALAMIN (B-12) 500 MCG TABLET PO SCH (09:05)
--- NOTE | 2023-01-08 10:36 | Hospitalist Progress Note ---
Date of Service January 08, 2023 Assessment & Plan (1) UTI (urinary tract infection): Plan: 1. Possible Early sepsis secondary to UTI r/o Bacteremia - Blood culture negative so far Urine culture no growth so far - fever resolved urinary symptoms resolved - received empiric IV Zosyn transition to Augmentin BID x 7 days - ff up final urine and blood culture reports 2. Deep venous thrombosis prophylaxis: Lovenox given plan of care discussed with patient in detail and at length all questions answered she is understanding, agreeable, comfortable with the plan of care Admission and Anticipated Discharge Date Admission Date: January 07, 2023 Subjective ff up for UTI, etc seen resting in bed, comfortable states she feels much better overall denies abdominal pain, nausea, urinary symptoms no other symptoms states she is ready and would like to be discharged Review of Systems Review of Systems: all noted and negative except for above Physical Exam Physical Exam: General- oriented x 3, not in distress, speaks in sentences with no effort or accessory muscle use Eyes- anicteric Neck- no JVD Lungs- clear breath sounds bilaterally, no rales/wheezes Heart- normal rate, regular rhythm; no murmurs Abdomen- normal bowel sounds, nondistended, soft, nontender no CVA tenderness Extremities- no pretibial edema, no calf tenderness Neuro- alert, oriented x 3; no gross focal neurologic deficits Skin- warm & dry Results & Data Results & Data Vital Signs (Past 12 Hours) Vital Signs Temp Pulse Pulse Resp BP Pulse Ox O2 Del Method 01/08/23 08:03 36.6 C 73 18 113/76 96 Room Air 01/08/23 04:09 36.6 C 60 18 146/71 H 97 Room Air 01/07/23 23:05 36.9 C 62 20 149/75 H 95 Room Air 01/07/23 22:49 72 all noted and reviewed including below (1) UTI (urinary tract infection) Urinary tract infection type: site unspecified
--- NOTE | 2023-01-08 17:01 | Discharge Summary ---
Discharge Summary Date of Service January 08, 2023 Notes For Next Care Provider ff up final urine and blood culture results Medication Changes From Visit Augmentin BID x 7 days Admission HPI Per Admitting Provider HISTORY OF PRESENT ILLNESS: This is a 62-year-old female with past medical history significant for chronic rhinitis, history of irritable bowel syndrome, cervicalgia, who presents with urinary symptoms. The patient states she woke up Wednesday morning on 01/06/2023 with burning micturition and also some back pain. She went to work but symptoms got worse. She drove to [facility] to give urine sample in the afternoon, she came back to work. But her symptoms progressively got worse.. She was feeling frequent urination with lot of pain. The pain was severe and was radiating into stomach into the chest. Was having chills and nausea and whole body aches.. She came back home around 4:30pm .Drank a lot of water. She has to cover herself with blankets as she was felling chilly and shivering and teeth were hurting. Was feeling very dizzy and she had episode of blood in the urine when she decided to call her , who was at work and she was brought to the hospital. When she came in, her, systolic blood pressure was 80s and with the fluid, the blood pressure improved. She had a temperature spike of 38.6, white count of 13.7, lactic acid is okay at 1.3. Urinalysis was positive and she was given Zosyn. Currently, her urine is, yellowish color and there was no blood in it and there was no burning. The pain is much improved. Other symptoms are much improved. She is feeling better. Right now, she wants to eat something, resting comfortably. at bedside. Denies any shortness of breath. No cough. She had a very bad headache when this happened, but it is much improved. She had blurred vision that is improving. No earache, no runny nose, no sore throat, no abdominal pain. Last Wednesday, she had episodes of severe diarrhea couple of episodes. It happened when she was at work and she thinks she had not cleaned properly that might had triggered her recurrent UTI. But after that her bowel movements are normnal. Admission Exam Per Admitting Provider GENERAL: The patient is of moderate build, not in acute distress. VITAL SIGNS: Temperature 36.9, pulse 65, respiratory rate 17, blood pressure 92/54, oxygen 92% on room air. HEENT: Pupils equal, round and reactive to light. Oral mucosa dry. NECK: No JVD or neck masses. CARDIOVASCULAR: S1 and S2 heard. Regular rate and rhythm. No murmur, no gallop. RESPIRATORY SYSTEM: Normal AP diameter. No accessory muscle use. No wheezing or crackles. ABDOMEN: Soft, bowel sounds present. Mild lower abdominal discomfort. No CVA tenderness. CENTRAL NERVOUS SYSTEM: Cranial nerves II through XII are grossly intact, nonfocal. EXTREMITIES: No edema, no erythema. Principal Dx & Hospital Course #1 = Principal Diagnosis (1) UTI (urinary tract infection): 1. Possible Early sepsis secondary to UTI r/o Bacteremia - Blood culture negative so far Urine culture no growth so far - fever resolved urinary symptoms resolved - received empiric IV Zosyn transition to Augmentin BID x 7 days - ff up final urine and blood culture reports 2. Deep venous thrombosis prophylaxis: Lovenox given plan of care discussed with patient in detail and at length all questions answered she is understanding, agreeable, comfortable with the plan of care Discharge Exam General- oriented x 3, not in distress, speaks in sentences with no effort or accessory muscle use Eyes- anicteric Neck- no JVD Lungs- clear breath sounds bilaterally, no rales/wheezes Heart- normal rate, regular rhythm; no murmurs Abdomen- normal bowel sounds, nondistended, soft, nontender no CVA tenderness Extremities- no pretibial edema, no calf tenderness Neuro- alert, oriented x 3; no gross focal neurologic deficits Skin- warm & dry Updated Medication List Medication Instructions Recorded Confirmed Type calcium-magnesium 750 mg-465 mg 1 tab PO DAILY 01/07/23 01/07/23 History tablet cholecalciferol (vitamin D3) 25 25 mcg PO DAILY 01/07/23 01/07/23 History mcg (1,000 unit) capsule (Vitamin D3) cyanocobalamin (vitamin B-12) 1,000 mcg PO DAILY 01/07/23 01/07/23 History 1,000 mcg tablet (Vitamin B-12) amoxicillin 875 mg-potassium 1 tab PO BID 7 days #14 tabs 01/08/23 Rx clavulanate 125 mg tablet Hospital Stay Data Consultations 01/07/23 00:35 ED Decision to Admit Stat Pending Results Patient Have Any Pending Studies at Discharge: No Discharge Instructions Given to Patient (Per Discharging Provider) PLEASE REFER TO YOUR NEW MEDICATION LIST AND FOLLOW INSTRUCTIONS CAREFULLY. YOUR NEW MEDICATIONS INCLUDE: Augmentin- antibiotic for urinary tract infection Probiotic- Renew [employer] recommended Drink plenty of fluids. PLEASE CALL YOUR PRIMARY CARE PHYSICIAN OR RETURN TO THE ER IF WITH WORSENING OF SYMPTOMS, INCLUDING fever/chills, abdominal/flank/back pain, nausea/ vomiting, weakness, etc FOLLOW UP WITH PRIMARY CARE PHYSICIAN IN 1 WEEK OUTLINED ABOVE. TAKE CARE. Total Time Total Time Spent Total Time Spent (In Minutes): > 30 minutes
== END 2023-01-08 12:25 | disposition home or self-care (01) | DRG 872 ==
LOC: ED 21:51 → SUATTDRO 01-07 03:19 → 2E 01-07 03:19